=== PATIENT | female | born 1955 | race Caucasian/White ===

== ENCOUNTER 2016-11-23 17:44 | Emergency (ER) | payer OTHER ==
--- NOTE | 2016-11-23 18:15 | ED Physician Documentation ---
Fall - HISTORIAN Historian: patient, child - [facility] Chief Complaint: Fall Onset: hours (1hr ago) Where: home Context: tripped (carrying child in rt arm tripped caught self cobinet top twist mid dodrsal area) r: mild Associated Symptoms:: no loss of consciousness (denies neruopathy peripheral numbness 'JUST MID BACK PAIN' ra chronic low back pain takes norco tramadol) Location of Pain/Injury: upper back Injury to Right Extremity: none Injury to Left Extremity: none - ROS CONST: denies: no problems NEURO: denies: dizziness MS/SKIN/LYMPH: back pain. denies: weakness, numbness, neck pain, ankle swelling EYES/ENT: none CVS/RESP: none GI/: denies: problems urinating, nausea, vomiting - PAST HX Past History: diabetes Type 2, other (chronic lo back pain copd diabetes htn anxiety lung mass-under observation) Allergies/Adverse Reactions: Allergies Allergy/AdvReac Type Severity Reaction Status Date / Time aspirin Allergy Verified 11/23/16 18:08 guaifenesin Allergy Verified 11/23/16 18:08 Penicillins Allergy Verified 11/23/16 18:08 strawberry Allergy Verified 11/23/16 18:08 Sulfa (Sulfonamide Allergy Verified 11/23/16 18:08 Antibiotics) Home Medications: Ambulatory Orders Medication Instructions Recorded Docusate Sodium [Colace] 200 mg PO DAILY 04/03/15 Estrogens, Conjugated [Premarin] 0.45 mg PO D 04/03/15 Bupropion HCl [Bupropion Xl] 150 mg PO BID 02/06/16 Carbamazepine [Tegretol Xr] 100 mg PO BID 02/06/16 Fluticasone Propionate 110 Mcg 2 spray IH D 02/06/16 [Flovent Hfa] LORazepam [Ativan] 1 mg PO TID 02/06/16 Omeprazole [Prilosec] 40 mg PO BID 02/06/16 Oxybutynin Chloride [Ditropan] 5 mg PO BID 02/06/16 Pnv No.122/Iron/Folic Acid 1 tab PO D 02/06/16 [ Multi Tablet] Propylene Glycol/Peg 400/Pf 1 drop TOP D 02/06/16 [Systane 0.3-0.4% Eye Drops] Ranitidine HCl 150 mg PO BID 02/06/16 Chlorzoxazone [Parafon Forte Dsc] 500 mg PO QID #20 tablet 06/26/16 Meloxicam [Mobic] 7.5 mg PO BID #10 tablet 06/26/16 Cyclobenzaprine HCl [Flexeril] 10 mg PO QID #15 tablet 11/23/16 - SOCIAL HX Smoking History: greater than 1 pack/day Alcohol Use: none Drug Use: none - FAMILY HX Family History: no significant history - VITAL SIGNS Vital Signs: Vital Signs Temp Pulse Resp BP Pulse Ox 116/68 06/26/16 13:40 - REVIEWED ASSESSMENTS Nursing Assessment Reviewed: Yes Vitals Reviewed: Yes Fall Physical Exam - Physical Exam General Appearance: mild distress, anxious Head: non-tender, no swelling, no obvious injury Neck: non-tender, painless ROM ENT: nml external inspection Resp/CVS: chest non-tender, no ecchymosis, breath sounds nml, no resp. distress , heart sounds nml Abdomen: soft, non-tender Neuro: oriented x3, CN's nml as tested, sensation nml, motor nml Skin: color nml, no rash. No: cyanosis, diaphoresis, pallor Back: other (palpatory tender mild spasm rt mid dorsal area-none mid line vert) Joint: joints nml, nml ROM - Jorden Coma Score Eyes Open: Spontaneous Speech: Oriented Motor: Obeys Commands Discharge Clincal Impression: mid dorsal back spasm s/p near fall Prescriptions: Cyclobenzaprine HCl [Flexeril] 10 mg PO QID #15 tablet Referrals: Noah Molina [Primary Care Provider] - 2 Days Home Medications: Ambulatory Orders Docusate Sodium [Colace] 200 mg PO DAILY 04/03/15 Estrogens, Conjugated [Premarin] 0.45 mg PO D 04/03/15 Bupropion HCl [Bupropion Xl] 150 mg PO BID 02/06/16 Carbamazepine [Tegretol Xr] 100 mg PO BID 02/06/16 Fluticasone Propionate 110 Mcg [Flovent Hfa] 2 spray IH D 02/06/16 LORazepam [Ativan] 1 mg PO TID 02/06/16 Omeprazole [Prilosec] 40 mg PO BID 02/06/16 Oxybutynin Chloride [Ditropan] 5 mg PO BID 02/06/16 Pnv No.122/Iron/Folic Acid [ Multi Tablet] 1 tab PO D 02/06/16 Propylene Glycol/Peg 400/Pf [Systane 0.3-0.4% Eye Drops] 1 drop TOP D 02/06/16 Ranitidine HCl 150 mg PO BID 02/06/16 Chlorzoxazone [Parafon Forte Dsc] 500 mg PO QID #20 tablet 06/26/16 Meloxicam [Mobic] 7.5 mg PO BID #10 tablet 06/26/16 Cyclobenzaprine HCl [Flexeril] 10 mg PO QID #15 tablet 11/23/16 Comments: pt declined need for xray Condition: Good Disposition: 01 HOME, SELF-CARE Decision to Admit: NO Decision Time: 18:22
[2016-11-23 18:19] VITALS: BP 123/69
== END 2016-11-23 18:37 | disposition home or self-care (01) ==
LOC: ED 17:44
DX: M54.9 Dorsalgia, unspecified (principal)
CPT/HCPCS: 99283